=== PATIENT | female | born 1955 | race Caucasian/White ===

== ENCOUNTER → 2023-09-29 07:42 | Outpatient (REF) | payer MEDICARE, OTHER, SELFPAY ==
[2023-09-29 08:56] LABS: % Basophils 0.9 % (0-2); % Immature Granulocytes 2.1 % (0-0.5); % Lymphocytes 25.9 % (20.5-51.1); % Monocytes 7.2 % (1.7-9.3); % Neutrophils 57.9 % (42.2-75.2); Absolute Basophils 0.1 10^3/uL (0-0.2); Absolute Eosinophils 0.6 10^3/uL (0-0.7); Absolute Immature Granulocytes 0.2 10^3/uL (0-0.05); Absolute Lymphocytes 2.4 10^3/uL (1.2-3.4); Absolute Monocytes 0.7 10^3/uL (0.1-0.6); Absolute Neutrophils 5.3 10^3/uL (1.4-6.5); Hemoglobin 11.5 g/dL (12.0-16.0); Mean Corp Hgb Conc. 32.9 g/dL (33.0-37.0); Mean Corpuscular Hgb 28.4 pg (27.0-31.0); Mean Corpuscular Volume 86.4 fL (81.0-99.0); Mean Platelet Volume 9.7 fL (7.4-10.4); Nucleated Red Blood Cells % 0 %; Platelet Count 272 10^3/uL (130-400); Red Blood Cell Count 4.05 10^6/uL (4.20-5.40); Red Cell Dist. Width 14.8 % (11.5-14.5); White Blood Cell Count 9.1 10^3/uL (4.8-10.8)
[2023-09-29 09:03] LABS: ALT (SGPT) 27 U/L (0-35); AST (SGOT) 33 U/L (14-36); Alkaline Phosphatase 109 U/L (38-126); Blood Urea Nitrogen 19 mg/dl (7-17); Calcium 9.6 mg/dl (8.4-10.2); Carbon Dioxide 31 mmol/L (22-30); Chloride 101 mmol/L (98-107); Glucose 177 mg/dl (70-99); Iron 88 ug/dl (37-170); Potassium 4.1 mmol/L (3.5-5.1); Sodium 140 mmol/L (135-145); Total Bilirubin 0.7 mg/dl (0.2-1.3); Total Protein 6.4 g/dl (6.3-8.2); eGFR > 60.00
[2023-09-29 09:09] LABS: Erythrocyte Sed Rate 31 mm/hour (0-20)
[2023-09-29 09:12] LABS: Percent Saturation 24 % (20-50); Total Iron Binding Capacity 358 ug/dl (265-497)
== END ==
LOC: REG 07:42
PROVIDERS: ATTENDING PHYSICIAN Internal Medicine Rheumatology; FAMILY PHYSICIAN Family Medicine; REFERRING PHYSICIAN Internal Medicine Hematology & Oncology
DX: L40.50 Arthropathic psoriasis, unspecified (principal); L40.9 Psoriasis, unspecified; D69.6 Thrombocytopenia, unspecified
CPT/HCPCS: 36415; 80053; 82728; 83540; 83550; 85025; 85652; 86140

== ENCOUNTER 2023-10-16 19:24 | Emergency (ER) | payer MEDICARE, OTHER, SELFPAY ==
[2023-10-16 19:32] VITALS: BP 120/61
[2023-10-16 21:48] VITALS: BMI 34.1
[2023-10-16 21:49] VITALS: BP 116/87
--- NOTE | 2023-10-16 21:57 | ED.GENMED ---
History of Present Illness
General
Chief Complaint: DVT/Possible Blood Clot
Source: patient
Exam Limitations: none
Time Seen by Provider: 10/16/23 21:14
Travel History
Have you had any contact with someone who has COVID-19?: No
Do you have any symptoms of coronavirus? Fever > 100 degrees, chills, cough, shortness of breath, sore throat, loss of taste or smell, muscle aches, or headache?: No
History of Present Illness
History of Present Illness:
68-year-old female who presents with pain in the left proximal calf. Patient states she stood up and her knee sort of buckled and she developed pain in that area. She felt like it was swollen. Patient is on a blood thinner but was worried it
could have been a clot. She denies numbness or tingling. The pain is definitely worse with movement. No chest pain or shortness of breath
Past History
Past History
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
ED Past Surgical History: Cardiac (A-fib ablation), Gynecological and Orthopedic
Patient has exhibited threatening behavior?: No
Social History
Tobacco: Non-smoker
Alcohol: None
Drug: None
Personal:
Living: with family
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
Family History
Family History: Other (No significant)
Phy Exam
Physical Exam
Physical Exam:
CONSTITUTIONAL Vital signs reviewed, Patient alert and oriented to person, place and time. Well-appearing
HEAD atraumatic, normocephalic.
EYES eyelids normal to inspection, Extraocular muscles intact, Conjunctiva normal, Sclera normal.
NECK normal range of motion, Trachea midline, no jugular venous distention.
RESP no respiratory distress
BACK No obvious deformities
UPPER EXTREMITY Gross Range of motion normal, gross motor strength normal
LOWER EXTREMITY Gross range of motion normal, Gross motor strength normal. No knee effusion. Minor tenderness noted at the proximal gastrocnemius right at the distal portion of the popliteal fossa. Hamstrings are nontender. Normal distal pulses
and bilateral lower extremities. No redness. No palpable cords
NEURO Speech normal, No focal motor deficits include, Sabinal coma scale 15, Memory normal, Cranial Nerves intact to screening exam.
SKIN Skin warm, dry, and normal in color.
PSYCHIATRIC Patient oriented to person place and time, Normal affect.
Course
Orders/Labs/Results
Orders:
Orders
10/16/23 19:38
US Legs, Left [US Periph Venous LOWER Ext LT] Urgent
Comment:
Reason For Exam: pain
Vital Signs
Initial and Last Documented VS:
Initial Vital Signs
Temp Pulse Resp BP Pulse Ox
98.0 F 68 18 120/61 100
10/16/23 19:32 10/16/23 19:32 10/16/23 19:32 10/16/23 19:32 10/16/23 19:32
Last Documented Vital Signs
Temp Pulse Resp BP Pulse Ox
98.0 F 68 18 116/87 97
10/16/23 19:32 10/16/23 19:32 10/16/23 19:32 10/16/23 21:49 10/16/23 21:51
MDM/Problems Addressed
MDM/Problems Addressed:
Calf injury
*Radiology
Radiology exam reviewed: radiology read reviewed
*Pulse Oximetry
Patient hypoxic: no
*Critical Care Note
Total Time (30-74mins, 75-104mins- exclusive of procedures): Not Applicable
Data Reviewed
Source: patient
Further Testing Considered But Not Given:
Considered x-rays but no fall
Patient Management
Escalation/DeEscalation of care consider admission/obs:
Tenderness and pain in the calf after she stood up and buckled her leg a little bit oddly. I do not suspect the knee injury but more so muscle/gastrocnemius strain. Recommended rest, ice
ED Attending Note
-
Portions of this chart may have been created with voice recognition software.� Occasional wrong word or��sound alike� substitutions may have occurred due to the inherent limitations of voice recognition software.
Discharge Plan
Departure
Patient Disposition: Home (Routine Discharge)
Date of Disposition: 10/16/23
Time of Disposition: 21:57
Patient with high blood pressure during this ER visit?: Yes
Discharge Problem:
Strain of calf muscle
Instructions: Leg Muscle Strain ED
Prescriptions:
No Action
duloxetine 60 MG capsule,delayed release(DR/EC)
60 mg PO DAILY
atorvastatin 10 MG tablet
10 mg PO HS
Januvia 100 MG tablet
100 mg PO DAILY
potassium chloride 10 MEQ capsule, extended release
20 meq PO BID
cetirizine 10 MG tablet
10 mg PO DAILY
ferrous sulfate [iron] 325 MG tablet
325 mg PO DAILY
glimepiride 4 MG tablet
4 mg PO BID
hydrochlorothiazide 25 MG tablet
25 mg PO DAILY
cholecalciferol (vitamin D3) 1,000 UNITS tablet
2,000 units PO DAILY
folic acid 1 MG tablet
1 mg PO MOWEFR
nadolol [Corgard] 20 mg Tablet
20 mg PO BID
Patient Comments:
Confirmed- patient takes 2 tablets BID for total dose of 40 mg BID
Otezla 30 mg Tablet
30 mg PO BID
ascorbic acid (vitamin C) [Vitamin C] 500 mg Tablet
500 mg PO DAILY
cyanocobalamin (vitamin B-12) [Vitamin B-12] 1,000 mcg Tablet
1,000 mcg PO MOWEFR
Eliquis 5 mg Tablet
5 mg PO BID
Rx Instructions:
02/19/2023, patient stopped taking the medication in 2021 but restarted on 05/30/2022
famotidine [Pepcid] 40 mg Tablet
40 mg PO DAILY
Trulicity 3 mg/0.5 mL Pen Injector
3 mg SC STOKES
nadolol [Corgard] 40 mg tablet
40 mg PO BID Qty: 60 0RF
Referrals:
Chandler Handy MD [Family Provider] -
Activity Restrictions/Additional Instructions:
Please ice your injured leg. Please use Tylenol as needed for pain control. Return for worsening symptoms, shortness of breath or any other concerns.
Interventions
Interventions:
*Risk Screen - Suicide Last Done: 10/16/23 19:32
*General Assessment Last Done: 10/16/23 19:32
*Neglect/Abuse Screening Last Done: 10/16/23 19:32
*ED COVID-19 Vaccine History Last Done: 10/16/23 21:50
ED- Cardiac Assessment Last Done: 10/16/23 21:50
ED- Pulmonary Assessment Last Done: 10/16/23 21:50
ED-Peripheral Vascular Assessment Last Done: 10/16/23 21:50
ED-Skin Assessment Last Done: 10/16/23 21:50
[2023-10-16 22:00] VITALS: BP 116/74
== END 2023-10-16 22:42 | disposition home or self-care (01) ==
LOC: EMR 19:24
PROVIDERS: EMERGENCY PHYSICIAN Emergency Medicine; FAMILY PHYSICIAN Family Medicine
DX: S86.112A Strain of other muscle(s) and tendon(s) of posterior muscle group at lower leg level, left leg, initial encounter (principal); X50.1XXA Overexertion from prolonged static or awkward postures, initial encounter; I10 Essential (primary) hypertension
CPT/HCPCS: 99284; 93971

== ENCOUNTER → 2023-12-08 14:34 | Outpatient (REF) | payer MEDICARE, OTHER, SELFPAY ==
[2023-12-08 16:39] LABS: % Basophils 0.6 % (0-2); % Eosinophils 2.2 % (0-6); % Immature Granulocytes 1.5 % (0-0.5); % Lymphocytes 25.4 % (20.5-51.1); % Monocytes 8.1 % (1.7-9.3); % Neutrophils 62.2 % (42.2-75.2); Absolute Basophils 0.1 10^3/uL (0-0.2); Absolute Eosinophils 0.2 10^3/uL (0-0.7); Absolute Immature Granulocytes 0.2 10^3/uL (0-0.05); Absolute Lymphocytes 2.6 10^3/uL (1.2-3.4); Absolute Monocytes 0.8 10^3/uL (0.1-0.6); Absolute Neutrophils 6.4 10^3/uL (1.4-6.5); Hematocrit 35.1 % (37.0-47.0); Hemoglobin 11.4 g/dL (12.0-16.0); Mean Corp Hgb Conc. 32.5 g/dL (33.0-37.0); Mean Corpuscular Hgb 27.4 pg (27.0-31.0); Mean Corpuscular Volume 84.4 fL (81.0-99.0); Mean Platelet Volume 9.8 fL (7.4-10.4); Nucleated Red Blood Cells % 0 %; Platelet Count 297 10^3/uL (130-400); Red Blood Cell Count 4.16 10^6/uL (4.20-5.40); Red Cell Dist. Width 14.9 % (11.5-14.5); White Blood Cell Count 10.3 10^3/uL (4.8-10.8)
== END ==
LOC: REG 14:34
PROVIDERS: ATTENDING PHYSICIAN Nurse Practitioner Family; FAMILY PHYSICIAN Family Medicine
DX: D69.3 Immune thrombocytopenic purpura (principal); D50.9 Iron deficiency anemia, unspecified
CPT/HCPCS: 36415; 85025

== ENCOUNTER → 2024-02-06 06:21 | Day surgery (SDC) | payer MEDICARE, OTHER, SELFPAY ==
[2024-02-06 09:03] LABS: % Basophils 0.9 % (0-2); % Immature Granulocytes 1.6 % (0-0.5); % Lymphocytes 25.7 % (20.5-51.1); % Monocytes 8.8 % (1.7-9.3); Absolute Basophils 0.1 10^3/uL (0-0.2); Absolute Eosinophils 0.5 10^3/uL (0-0.7); Absolute Immature Granulocytes 0.1 10^3/uL (0-0.05); Absolute Lymphocytes 2.3 10^3/uL (1.2-3.4); Absolute Monocytes 0.8 10^3/uL (0.1-0.6); Absolute Neutrophils 5.1 10^3/uL (1.4-6.5); Hematocrit 35.7 % (37.0-47.0); Hemoglobin 11.9 g/dL (12.0-16.0); Mean Corp Hgb Conc. 33.3 g/dL (33.0-37.0); Mean Corpuscular Hgb 27.4 pg (27.0-31.0); Mean Corpuscular Volume 82.3 fL (81.0-99.0); Nucleated Red Blood Cells % 0 %; Platelet Count 294 10^3/uL (130-400); Red Blood Cell Count 4.34 10^6/uL (4.20-5.40); Red Cell Dist. Width 15.1 % (11.5-14.5); White Blood Cell Count 8.9 10^3/uL (4.8-10.8)
[2024-02-06 09:31] LABS: Blood Urea Nitrogen 19 mg/dl (7-17); Calcium 9.4 mg/dl (8.4-10.2); Carbon Dioxide 32 mmol/L (22-30); Chloride 101 mmol/L (98-107); Glucose 128 mg/dl (70-99); Potassium 4.2 mmol/L (3.5-5.1); Sodium 140 mmol/L (135-145); eGFR > 60.00
== END ==
LOC: SDSPAT 06:21
PROVIDERS: ATTENDING PHYSICIAN Obstetrics & Gynecology Gynecologic Oncology; FAMILY PHYSICIAN Family Medicine; OTHER PHYSICIAN Internal Medicine Cardiovascular Disease; OTHER PHYSICIAN Internal Medicine Rheumatology; REFERRING PHYSICIAN Surgery
DX: Z01.812 Encounter for preprocedural laboratory examination (principal); K38.8 Other specified diseases of appendix
CPT/HCPCS: 85025; 36415; 80048; 86850; 86900; 86901; 87070

== ENCOUNTER 2024-02-17 06:06 | Day surgery (SDC) | payer MEDICARE, OTHER, SELFPAY ==
[2024-02-06 06:49] VITALS: BMI 33.6
--- NOTE | 2024-02-16 18:45 | HPS.HSE ---
Family Physician
-
Family Physician: INTERVIEWE UNKNOWN - PT NOT
Chief Complaint
-
N/A
History of Present Illness
Paloma�Anthes�is a 68 yo woman who has history of microcytic�anemia�with�iron�deficiency� Has�been�on�chronic�oral�iron�resuscitation�but�has�persistent�iron�deficiency.�
Diabetic�control�required�insulin as�a�result�of�steroid�associated�insulin�resistance�during�her�hospitalization. She�had�previously�noted�to�have�a�appendiceal�enlargement�,�and�saw�Dr�Ramin�Denny at [facility].
CT�abdomen�and�pelvis�without�contrast�Leydi��shows�distended�appendix�filled�with�air,�low�density�material�and
calcification�consistent�with�Appendicolithitis�or�concreted�oral�contrast.�There�is�no�evidence�for�active�inflammation�and�no�more
distended�than�prior�comparison�study.�There�is�a�thickened�proximal�third�portion�of�jejunum�with�flat�fold�pattern�consider�chronic
jejunitis�or�celiac�disease,�small�left�ovarian�cyst�which�is�new�since�prior�study.�Liver�spleen�kidneys�adrenal�glands�pancreas�and
gallbladder�are�normal.�Uterus�and�right�ovary�are�normal,�left�ovarian�small�cyst�15�mm�new�since�prior�study�present.�Moderate�to
severe�left�hip�osteoarthritis�with�bone�on�bone�appearance�and�subchondral�cyst.�Right�hip�joint�is�normal.�Spine�is�normal
Due to�new�ovary�cyst�further�investigation�was�done�with�US�pelvis.
Ultrasound�of�pelvis�dated�October 2023 :irregular�endometrium�with�cysts�and�fluid�present,�endometrium�borderline�thickened�at
5�mm.�Consideration�of�endometrial�hyperplasia�versus�malignancy�present.�Uterus�is�6.2�x�3.5�x�4.8�cm,�endometrial�complex�is�5
mm,�right�ovary�is�2.2�x�1.3�x�1.5�cm�containing�a�follicle�which�is�1�cm.�Left�ovary�is�2�x�2.3�x�1.3�cm�with�left�ovary�cyst measuring�1.8�cm.�There�is�a�left�ovary�simple�cyst�present�measuring . I performed an endometrial biopsy which was
atrophic and no hyperplasia or cancer.
Medical History
Past Medical History
Past Medical History: Reports HTN and Hypercholesterolemia
Additional Past Medical History:
Atrial�fibrillation
Bleeding�tendency
Hypertension
Type�II�Diabetes
Blood�transfusions
Kidney�stones
Hyperlipidemia
Anemia
Psoriatic�
arthritis
Obesity�
Past Surgical History: Reports
Additional Past Surgical History:
Tubal ligation
[place] teeth
Ablation Rx2, Lx2
Cardioversion x3
Social History
Unable to obtain full social history at this time due to: Other (Patient is . Never Smoker Patient reports alcohol use as follows: Patient reports on average <1 drinks per week of alcohol/beer. 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
Tobacco: Non-smoker
Family History
Family History: Not pertinent
Allergies / Home Medications
Allergies reflects when Allergies were last updated in [employer].
Home Medications with original date entered in [employer]
Allergy/Medication List:
Indocin
Iodinated contrast media
Review of Systems
-
History Source: Patient
A 12 point ROS was completed and negative except as noted: Yes
Constitutional: Reports No Symptoms
EENT: Reports No Symptoms
Respiratory: Reports No Symptoms
Cardiac: Reports No Symptoms
Abdomen/GI: Reports No Symptoms
: Reports No Symptoms
Musculoskeletal: Reports No Symptoms
Skin: Reports No Symptoms
Neurological: Reports No Symptoms
Psych: Reports No Symptoms
Physical Exam
Physical Exam
General: Well Developed, Well Nourished and Other (Patient is well developed, well nourished. No acute distress. ECOG Performance: 0: Fully active, able to carry on all pre�disease performance without restriction Patient appears stated age.
Atraumatic and normocephalic. Sclera are clear. There is no redness/drainage in conjunctiva. Neck is suppl)
HEENT: NormoCephalic
Respiratory: Clear
Cardiac: S1/S2 and Regular Rhythm
GI: Soft, Non Tender and Non Distended
Musculoskeletal: No Clubbing and No Cyanosis
Skin: Warm
Neuro: Awake, Alert, Oriented and AO x 3
Psych: Calm and Intact Judgment/Insight
Laboratory Results
-
I reviewed the images of her CT A/P, and also pelvic US. with the patient, and explained my exam findings.
cyst of ovary is very small and overall benign appearing. it is new, which is unusual in this age group.
Tumor markers including CA125 and CEA and CA19-9 are normal.
Uterine lining was slightly Thick on US. endometrial biopsy done, may be due to residual polyp. suspect she had cervical stenosis and had trapped mucous. suspicious for malignancy is very low.
she wants to have uterus and ovary removed if she is having surgery on appendix at same time.
We plan to proceed with Robotic TLH BSO and Dr Sherman is to joinus and do appendectomy at same time.
Risks discussed and reviewed, consent will be signed.
Data Reviewed
-
Diagnostic Radiology: Image Personally Visualized and interpreted
CT Scan: Image Personally Visualized and interpreted
Impression/Plan
-
IMPRESSION:
PLAN:
[2024-02-17] VITALS (18 sets, daily range): BP systolic 121–150; BP diastolic 59–88; BMI 33.6
[2024-02-17] MEDS: TYLENOL 1000 MG PO (06:25)
[2024-02-17] MEDS: CELEBREX PO (06:26)
[2024-02-17] MEDS: NEURONTIN 300 MG PO (06:26)
[2024-02-17] MEDS: HEPARIN 5000 UNITS SC (06:27)
[2024-02-17] MEDS: CELEBREX 200 MG PO (06:38)
[2024-02-17] MEDS: NORMOSOL-R 1000 IV (06:39)
[2024-02-17 06:40] LABS: Glucose - Point of Care 169 mg/dl (70-99)
--- NOTE | 2024-02-17 07:04 | HP.FOC2 ---
Focused History & Physical
Chief Complaint
HPI:
Chief Complaint: Abnormal imaging of the appendix
HPI / Indication for Planned Procedure: Patient is a 68-year-old female presenting today for robotic assisted lap BSO with CT imaging demonstrating a mildly dilated appendix measuring 11 mm with low density material and calcifications suggestive of
an appendicolith or old oral contrast. Colonoscopy unremarkable.
Relevant Past Medical History: Other (Anemia, GERD, gastritis, MELLISSA/CPAP, depression, DM type II, hyperlipidemia, hypertension, ITP, P A-fib)
Relevant Social History: Negative
Relevant Family History: Negative
Relevant Past Surgical History: Positive for (Cardioversion, tubal ligation, cardiac ablations, loosened teeth extraction)
Review of Systems
Review of Pertinent Systems: All Systems Negative
Medication
See Medication form for detailed medications: Yes
Medication List (including Herbals & OTC):
duloxetine 60 mg capsule,delayed release 60 mg PO DAILY Mental Health/Anxiety 03/26/13
atorvastatin 10 mg tablet 10 mg PO HS High cholesterol 03/31/13
sitagliptin phosphate 100 mg tablet (Januvia) 100 mg PO DAILY Diabetes 12/01/13
cetirizine 10 mg tablet 10 mg PO DAILY 06/17/20
cholecalciferol (vitamin D3) 25 mcg (1,000 unit) tablet 2,000 units PO DAILY Supplement 06/17/20
ferrous sulfate 325 mg (65 mg iron) tablet (iron) 65 mg PO DAILY Supplement 06/17/20
glimepiride 4 mg tablet 4 mg PO BID Diabetes 06/17/20
hydrochlorothiazide 25 mg tablet 25 mg PO DAILY Blood pressure 06/17/20
potassium chloride 10 mEq capsule,extended release 20 meq PO BID Supplement 06/17/20
apremilast 30 mg tablet (Otezla) 30 mg PO BID Psoriatic arthitis 02/02/22
ascorbic acid (vitamin C) 500 mg tablet (Vitamin C) 500 mg PO DAILY Supplement 03/06/22
cyanocobalamin (vitamin B-12) 1,000 mcg tablet (Vitamin B-12) 1,000 mcg PO DAILY 03/25/22
apixaban 5 mg tablet (Eliquis) 5 mg PO BID 02/17/23
dulaglutide 3 mg/0.5 mL subcutaneous pen injector (Trulicity) 3 mg SC STOKES 02/19/23
famotidine 40 mg tablet (Pepcid) 40 mg PO DAILY 02/19/23
nadolol 40 mg tablet (Corgard) 40 mg PO BID #60 tabs 02/19/23
magnesium 250 mg tablet 250 mg PO BID 02/09/24
Medications Reviewed: Yes
Allergies and Reactions
Patient has Allergies: Yes
Noted Allergies and Reactions:
Allergy/AdvReac Type Severity Reaction Status Date / Time
indomethacin Allergy bradycardia Verified 02/17/24 06:06
Iodinated Contrast Media Allergy Hives Verified 02/17/24 06:06
[Iodinated Contrast Media -
IV Dye]
Pertinent Physical Exam
All Other Systems: Negative
Head/Neck: Normal
Lungs: Normal
Heart: Normal
Abdomen: Normal
Extremities: Normal
Neurological: Normal
Diagnosis / Assessment
68-year-old female with abnormal imaging of the appendix
Plan / Procedure
Robotic assisted/laparoscopic appendectomy
Anesthesia/Sedation to be done by Anesthesia Provider: Yes
--- NOTE | 2024-02-17 07:08 | W.SUR.PREOP ---
Pre-Operative Surgical Note
-
I have examined this patient prior to the performance of the scheduled procedure.
The patient's condition is unchanged from the time of the current History and
Physical and the patient is able to undergo the scheduled procedure - laparoscopic/RAL appendectomy
--- NOTE | 2024-02-17 08:36 | W.IMMPOSTOP ---
Addendum entered and electronically signed by Graeme Herman MD 02/17/24 08:44:
#[id number]
Original Note:
Surgical Immed Post Op Note
-
Primary Surgeon: Virgil
Assisting Surgeon: Mireille LOZANO
Pre-op Diagnosis: Abnormal imaging of the appendix, possible mucocele
Post-op Diagnosis: Abnormal imaging of the appendix, possible mucocele
Procedure Performed: Laparoscopic appendectomy
Anesthesia Type: GETA
Specimen / Cultures: Appendix/none
Estimated Blood Loss: 6 mL for this portion of the procedure
Complications: None
Operative Findings: Modestly dilated appendix without acute or chronic inflammatory changes. Mesoappendix mobilized and then divided to the base of the appendix with vessel sealer for hemostasis. Appendix divided with short cuff of cecum
preserving ileocecal valve. No disruption of appendix with appendectomy. No additional concerning incidental findings.
Please see Dr. Love's operative report for remaining details regarding operative procedure.
Patient's updated postoperatively in waiting area
--- NOTE | 2024-02-17 09:35 | OR.RPT ---
Operative Report
Operative Report
Date of surgery: February 17, 2024
Preoperative diagnosis: Thickened endometrial lining suspicious for malignancy, ovarian cyst, uterine prolapse
Postoperative diagnosis: Benign appearing ovarian cyst, remainder pending final pathology
Procedure:
Robotic assisted total laparoscopic hysterectomy, bilateral salpingo-oophorectomy [id number]
Injection of cervix with ICG dye, bilateral, for mapping and identification of pelvic sentinel lymph nodes [id number]
Robotic assisted laparoscopic excision of pelvic sentinel lymph node [id number]
Robotic assisted laparoscopic uterosacral colpopexy [id number]
additional procedure: Robotic assisted laparoscopic appendectomy (by Dr Graeme Herman)
Surgeon: Gianni Love MD
Assist: Pal Ball PA-C, MARTA Edwards
Anesthesia: General
EBL: 50 cc
Complications: None
Procedure in detail. This patient was taken to the operating room for definitive management of recently identified abnormal thickening of the lining of the uterus, ovarian cyst as well as dilated abnormal appearing appendix. Surgery was
coordinated with general surgery and in order to remove the appendix at the same time. She was placed in supine position general anesthesia was administered she was intubated without any difficulty she was placed on lithotomy position using
yellowfin stirrups arms were wrapped and foams and placed along the sides eyes were taped and OG tube was placed. The patient was prepped on the abdomen perineum and vagina on upper thighs and she was draped. Timeout procedure was carried out, she
received combination of Ancef and Flagyl for prophylaxis and had received heparin for prophylaxis previously.
Concepcion catheter was placed under sterile conditions into the bladder. Anterior lip of the cervix was grasped with single-tooth tenaculum. Cervix was dilated, uterine cavity was approximately 8 cm. Uterine manipulator chief fundraising officer type. 3.5 cm BANDAR
ring was placed in the uterine cavity for manipulation. Attention was turned abdominally, Veress needle was placed under the left costal margin and insufflation of the abdomen with CO2 gas was performed up to pressure of 15 mmHg. 8 mm robotic
ports were placed 25 cm cephalad to the symphysis pubis and under direct visualization using the camera additional 8 mm robotic ports were placed right and left upper quadrants of the abdomen and right and left lateral abdomen. We turned the case
over to the general surgery team, the patient was placed in Trendelenburg, please see Dr. Herman's note for robotic assisted appendectomy.
Next pelvic washings were collected, uterine manipulator was removed and the cervix was injected with ICG dye total of 4 cc split at 3 and 9:00 positions at 5 mm and 10 mm stations. Following this the manipulator was placed back into uterus and
vaginal cuff occluder was insufflated. Right and left round ligaments were sealed and divided anterior and posterior leaves of the broad ligament were dissected open. Both retroperitoneal spaces on the right and left sides were opened, the course
of the ureter was identified bilaterally, a window was created between ureter and IP ligament and the IP ligaments were sealed 3 times and divided. Tubes and ovaries were left attached to the uterus. On the left side I was unable to map the
lymphatic channel into a particular lymph node. On the right side 2 lymph nodes along the mid external iliac artery were removed as sentinel lymph nodes. Bladder flap was sharply developed and advanced below the cervical vaginal junction. Uterine
arteries were skeletonized and were sealed with vessel sealer and divided. Circumferential incision was made around the BANDAR ring until the uterus was completely detached. The uterus and cervix as well as a bag containing the appendix was removed
through the vagina. The vaginal cuff was closed with 0 Vicryl suture ligature in a [id number] fashion at both apices incorporating uterosacral ligaments. V-Loc suture was used to close the remainder of the cuff in 2 layers. Because of the
presence of uterine prolapse and excessive mobility of the vaginal apex uterosacral suspension was performed with 2-0 PDS suture approximating uterosacral ligaments in a [id number] fashion and this was tied securely. All pedicles were examined
and there was no evidence of bleeding. We closed the fascia at the level of the 12 mm right lower quadrant port with 0 Vicryl suture. Using a Sendori system. Pneumoperitoneum was released. All ports were removed. The skin closure at the
ports were completed with 4-0 Monocryl. Skin glue was applied to all incisions. All incisions were injected with bupivacaine, ropivacaine was injected similar to a tap block on right and left side below the costal margins. Patient was awakened
extubated and returned back to recovery room stable awake and extubated condition. Counts of laps instruments and needle was correct x 2. I was present and scrubbed for entire procedure as dictated above. Also the vaginal cuff occluder as well as
Concepcion catheter was removed at the completion of the procedure
Disposition: To PACU, stable awake extubated
[2024-02-17 09:39] LABS: Glucose - Point of Care 238 mg/dl (70-99)
[2024-02-17] MEDS: NOVOLOG vial 1 UNITS SC (10:11)
--- NOTE | 2024-02-17 10:28 | PTCARENOTE ---
0950 Patient noted to have bursts of bigeminy/SB, VSS, asymptomatic. Dr Velasquez made aware, eval in PACU no new orders at this time, will cont to monitor for improvement .
--- NOTE | 2024-02-17 10:31 | PTCARENOTE ---
1020 Episodes/frequency of bigeminy are diminishing. Patient remains asymptomatic with stable VS. No C/O.
--- NOTE | 2024-02-17 12:24 | PTCARENOTE ---
1130 Patient continues to have runs of bigeminy and remains asymptomatic. VSS no C/O. Per Dr Eva neal to transfer to [facility] and proceed with discharge as ordered.
== END 2024-02-17 14:25 | disposition home or self-care (01) ==
LOC: SDS 06:06
PROVIDERS: ATTENDING PHYSICIAN Obstetrics & Gynecology Gynecologic Oncology
DX: D12.1 Benign neoplasm of appendix (principal); N72 Inflammatory disease of cervix uteri; N80.03 Adenomyosis of the uterus; D25.9 Leiomyoma of uterus, unspecified; N83.8 Other noninflammatory disorders of ovary, fallopian tube and broad ligament; D27.1 Benign neoplasm of left ovary; D27.0 Benign neoplasm of right ovary; R93.89 Abnormal findings on diagnostic imaging of other specified body structures
CPT/HCPCS: 57425; 58571; 38500; 38900; 44970; 88304; 88307; 88309; 82962; 88112; 88342

== ENCOUNTER 2024-03-15 05:20 | Emergency (ER) | payer MEDICARE, OTHER, SELFPAY ==
[2024-03-15] VITALS (7 sets, daily range): BP systolic 129–165; BP diastolic 61–93; BMI 34.7
[2024-03-15 06:00] LABS: % Basophils 0.3 % (0-2); % Immature Granulocytes 1.3 % (0-0.5); % Lymphocytes 29.1 % (20.5-51.1); % Monocytes 8.5 % (1.7-9.3); % Neutrophils 56.8 % (42.2-75.2); Absolute Eosinophils 0.4 10^3/uL (0-0.7); Absolute Immature Granulocytes 0.1 10^3/uL (0-0.05); Absolute Lymphocytes 2.7 10^3/uL (1.2-3.4); Absolute Monocytes 0.8 10^3/uL (0.1-0.6); Absolute Neutrophils 5.2 10^3/uL (1.4-6.5); Hematocrit 36.8 % (37.0-47.0); Hemoglobin 11.9 g/dL (12.0-16.0); Mean Corp Hgb Conc. 32.3 g/dL (33.0-37.0); Mean Corpuscular Hgb 27.2 pg (27.0-31.0); Mean Platelet Volume 9.3 fL (7.4-10.4); Nucleated Red Blood Cells % 0 %; Platelet Count 260 10^3/uL (130-400); Red Blood Cell Count 4.38 10^6/uL (4.20-5.40); Red Cell Dist. Width 15.9 % (11.5-14.5); White Blood Cell Count 9.2 10^3/uL (4.8-10.8)
--- NOTE | 2024-03-15 06:17 | EDRN ---
Pt had a hysterectomy and appendectomy 3 weeks ago. Pt started with vaginal bleeding around [id number] this morning. Blood was bright red with small clots. Pt says she was having a pink tinge up until this morrning. Pt says she is still bleeding.
No cp, sob, abd pain, n/v/c/d, fever/chills/cough, urinary symptoms.
[2024-03-15 06:20] LABS: ALT (SGPT) 26 U/L (0-35); AST (SGOT) 31 U/L (14-36); Albumin 4.1 g/dl (3.5-5.0); Alkaline Phosphatase 106 U/L (38-126); Blood Urea Nitrogen 18 mg/dl (7-17); Carbon Dioxide 30 mmol/L (22-30); Chloride 101 mmol/L (98-107); Estimated Creatinine Clearance 60 ml/min; Glucose 139 mg/dl (70-99); Lipase 1875 U/L (23-300); Sodium 140 mmol/L (135-145); Total Bilirubin 0.5 mg/dl (0.2-1.3); Total Protein 6.5 g/dl (6.3-8.2); eGFR > 60.00
--- NOTE | 2024-03-15 06:46 | ED.GENMED ---
History of Present Illness
<Milton Brice MD, Resident - Last Filed: 03/15/24 10:56>
General
Chief Complaint: Female Mate Fourth/Gu symptoms
Source: patient
Time Seen by Provider: 03/15/24 06:09
History of Present Illness
History of Present Illness:
68-year-old postmenopausal female, Ms. Paloma Saha robotic assisted laparoscopic hysterectomy place BSO/appendectomy (02/17/2024), A-fib on Eliquis, presented to the ER reporting painless vaginal bleeding since 1 AM in the morning. Patient
reports bleeding louisa bright red blood associated with small clots. Patient reports no postoperative complications. No history of fever/chills, abdominal pain, lightheadedness/dizziness, bladder/bowel issues. No history of any strenuous
activity, she returned to work 2 weeks after the surgery without any issues.
Past History
<Milton Brice MD, Resident - Last Filed: 03/15/24 10:56>
Past History
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
ED Past Surgical History: Cardiac (A-fib ablation), Gynecological and Orthopedic
Patient has exhibited threatening behavior?: No
Social History
Tobacco: Non-smoker
Alcohol: None
Drug: None
Personal:
Living: with family
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
Family History
Family History: Other (No significant)
Review of Systems
<Milton Brice MD, Resident - Last Filed: 03/15/24 10:56>
Review of Systems
All Other Systems: ROS reviewed and negative except as documented in HPI and ROS
Phy Exam
<Milton Brice MD, Resident - Last Filed: 03/15/24 10:56>
Physical Exam
Physical Exam:
GEN: Well appearing, NAD, WDWN
Eyes: PERRLA, EOMs intact, no scleral icterus
HENT: NCAT, oral mucosa moist, no JVD, no cervical adenopathy.
Lungs: CTAB, no wheezes, rales, rhonchi, normal chest wall excursion
Cardiac: RRR, S1-S2+, no peripheral edema. Radial pulses 2+ bilat
Abdomen: S, NT, ND, NABS, no masses or hepatosplenomegaly
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 So did not do the whole pelvic/bimanual/speculum exam. On inspection-bleeding per vagina.
Skin: No rashes, petechiae. Normal color, no pallor or jaundice.
Psych: Calm, cooperative, proper hygiene
Course
<Veneela Bob Brice MD, Resident - Last Filed: 03/15/24 10:56>
Orders/Labs/Results
Orders:
Orders
03/15/24 05:46
Type+Screen Urgent
Complete Blood Count/With Diff Urgent
Comprehensive Metabolic Panel Urgent
Lipase Urgent
03/15/24 07:09
CT Angio Abd/Pelvis w/wo IV [CT Abd/pelvis Angio W/wo Iv] Urgent
Comment:
Reason For Exam: vaginal bleeding s/p hysterectomy
03/15/24 07:31
Urinalysis Reflex To Culture Urgent
Date Specimen was Collected: 03/15/24
Time Specimen was Collected: 07:11
Urine Microscopic Reflex Cult Urgent
03/15/24 07:46
Diphenhydramine [Benadryl] 50 mg IV NOW STA
Hydrocortisone Sod Succinate [Solu-Cortef] 200 mg IV NOW STA
03/15/24 08:10
PT/INR [Prothrombin Time] Urgent
Abnormal Lab Results
03/15/24 03/15/24 03/15/24
05:46 07:31 08:10
Hgb 11.9 L g/dL
(12.0-16.0)
Hct 36.8 L %
(37.0-47.0)
MCHC 32.3 L g/dL
(33.0-37.0)
RDW 15.9 H %
(11.5-14.5)
Abs Immat Gran (auto) 0.1 H 10^3/uL
(0-0.05)
Absolute Monos (auto) 0.8 H 10^3/uL
(0.1-0.6)
Immature Gran % 1.3 H %
(0-0.5)
PT 15.2 H Sec
(11.4-14.6)
BUN 18 H mg/dl
(7-17)
Glucose 139 H mg/dl
(70-99)
Lipase 1875 H* U/L
(23-300)
Ur Occult Blood Reflex 4+ A
(Negative)
Leukocyte Esterase Rfl Trace A
(Negative)
Urine RBC 50-60 A /HPF
(0-2)
Urine Bacteria (Reflex) Few A
(Negative)
03/15/24 05:46
03/15/24 05:46
Vital Signs
Initial and Last Documented VS:
Initial Vital Signs
Temp Pulse Resp BP Pulse Ox
98.5 F 64 22 146/82 100
03/15/24 05:22 03/15/24 05:22 03/15/24 05:22 03/15/24 05:22 03/15/24 05:22
Last Documented Vital Signs
Temp Pulse Resp BP Pulse Ox
98.5 F 68 28 147/77 98
03/15/24 05:22 03/15/24 08:30 03/15/24 08:30 03/15/24 08:01 03/15/24 08:30
<Srinivasa Swan, DO - Last Filed: 03/15/24 07:12>
Orders/Labs/Results
Orders:
Orders
03/15/24 05:46
Type+Screen Urgent
Complete Blood Count/With Diff Urgent
Comprehensive Metabolic Panel Urgent
Lipase Urgent
03/15/24 07:09
CT Angio Abd/Pelvis w/wo IV [CT Abd/pelvis Angio W/wo Iv] Urgent
Comment:
Reason For Exam: vaginal bleeding s/p hysterectomy
03/15/24 07:31
Urinalysis Reflex To Culture Urgent
Date Specimen was Collected: 03/15/24
Time Specimen was Collected: 07:11
Urine Microscopic Reflex Cult Urgent
03/15/24 07:46
Diphenhydramine [Benadryl] 50 mg IV NOW STA
Hydrocortisone Sod Succinate [Solu-Cortef] 200 mg IV NOW STA
03/15/24 08:10
PT/INR [Prothrombin Time] Urgent
Abnormal Lab Results
03/15/24 03/15/24 03/15/24
05:46 07:31 08:10
Hgb 11.9 L g/dL
(12.0-16.0)
Hct 36.8 L %
(37.0-47.0)
MCHC 32.3 L g/dL
(33.0-37.0)
RDW 15.9 H %
(11.5-14.5)
Abs Immat Gran (auto) 0.1 H 10^3/uL
(0-0.05)
Absolute Monos (auto) 0.8 H 10^3/uL
(0.1-0.6)
Immature Gran % 1.3 H %
(0-0.5)
PT 15.2 H Sec
(11.4-14.6)
BUN 18 H mg/dl
(7-17)
Glucose 139 H mg/dl
(70-99)
Lipase 1875 H* U/L
(23-300)
Ur Occult Blood Reflex 4+ A
(Negative)
Leukocyte Esterase Rfl Trace A
(Negative)
Urine RBC 50-60 A /HPF
(0-2)
Urine Bacteria (Reflex) Few A
(Negative)
03/15/24 05:46
03/15/24 05:46
Vital Signs
Initial and Last Documented VS:
Initial Vital Signs
Temp Pulse Resp BP Pulse Ox
98.5 F 64 22 146/82 100
03/15/24 05:22 03/15/24 05:22 03/15/24 05:22 03/15/24 05:22 03/15/24 05:22
Last Documented Vital Signs
Temp Pulse Resp BP Pulse Ox
98.5 F 68 28 147/77 98
03/15/24 05:22 03/15/24 08:30 03/15/24 08:30 03/15/24 08:01 03/15/24 08:30
<Milton Brice MD, Resident - Last Filed: 03/15/24 10:56>
MDM/Problems Addressed
Differential Diagnosis Includes:
Vaginal cuff dehiscence versus vault endometriosis versus atrophic vaginitis
MDM/Problems Addressed:
Patient is anemic at baseline, 11.9.
Incidental finding of elevated lipase�1875.
LFTs normal, patient is asymptomatic, no RUQ pain.
CT scan abdomen pelvis with contrast�no pelvic hematomas/areas of active contrast extravasation.
Consulted Dr. Love, advised the patient to be seen in his office for vaginal packing.
Consulted GI for elevated lipase�would like to repeat lipase in a week and follow-up with primary care physician.
Patient is hemodynamically stable.
Patient is advised to go to Dr. Love's office once discharged for further management of vaginal bleeding.
<Milton Brice MD, Resident - Last Filed: 03/15/24 10:56>
*Critical Care Note
Total Time (30-74mins, 75-104mins- exclusive of procedures): Not Applicable
ED Attending Note
<Milton Brice MD, Resident - Last Filed: 03/15/24 10:56>
-
Portions of this chart may have been created with voice recognition software.� Occasional wrong word or��sound alike� substitutions may have occurred due to the inherent limitations of voice recognition software.
<Srinivasa Swan, DO - Last Filed: 03/15/24 07:12>
ED Attending Note
Patient seen and examined by attending physician: Yes
I performed a history and physical exam of patient and discussed management with resident, I reviewed resident's note and agree with documented findings and plan of care.: Yes
ED Attending Note:
I have reviewed and agree with history and treatment plan by Dr. Milton Brice. My exam revealed 68-year-old female in no acute distress. Vaginal bleeding on pad. Abdomen exam benign. Discussed with Dr. Love, who recommends CT angiography
abdomen pelvis.
Discharge Plan
Departure
Patient Disposition: Home (Routine Discharge)
Date of Disposition: 03/15/24
Time of Disposition: 10:52
Patient with high blood pressure during this ER visit?: Yes
Condition: Good
Discharge Problem:
Vaginal bleeding, Abnormal serum lipase level
Prescriptions:
No Action
duloxetine 60 MG capsule,delayed release(DR/EC)
60 mg PO DAILY
atorvastatin 10 MG tablet
10 mg PO HS
Januvia 100 MG tablet
100 mg PO DAILY
cetirizine 10 MG tablet
10 mg PO DAILY
ferrous sulfate [iron] 325 MG tablet
325 mg PO DAILY
glimepiride 4 MG tablet
4 mg PO BID
hydrochlorothiazide 25 MG tablet
25 mg PO DAILY
Otezla 30 mg Tablet
30 mg PO BID
ascorbic acid (vitamin C) [Vitamin C] 500 mg Tablet
500 mg PO DAILY
cyanocobalamin (vitamin B-12) [Vitamin B-12] 1,000 mcg Tablet
1,000 mcg PO DAILY
Eliquis 5 mg Tablet
5 mg PO BID
famotidine [Pepcid] 40 mg Tablet
40 mg PO DAILY
Trulicity 3 mg/0.5 mL Pen Injector
3 mg SC STOKES
nadolol [Corgard] 40 mg tablet
40 mg PO BID Qty: 60 0RF
magnesium 250 mg Tablet
250 mg PO BID
cholecalciferol (vitamin D3) [Vitamin D3] 50 mcg (2,000 unit) Tablet
50 mcg PO DAILY
potassium chloride 10 mEq capsule, extended release
20 meq PO BID
Theragen Tablet
1 tab PO DAILY
Referrals:
Chandler Handy MD [Family Provider] -
Activity Restrictions/Additional Instructions:
Patient advised to go to Dr. Love's office immediately after the discharge.
Follow-up with your primary care within a week for rechecking her lipase.
Interventions
Interventions:
*Risk Screen - Suicide Last Done: 03/15/24 05:22
*General Assessment Last Done: 03/15/24 05:49
*Neglect/Abuse Screening Last Done: 03/15/24 05:22
ED- Fall Risk Assessment Last Done: 03/15/24 06:16
*ED COVID-19 Vaccine History Last Done: 03/15/24 05:49
ED-Female Genitourinary Assessment Last Done: 03/15/24 05:52
ED-Skin Assessment Last Done: 03/15/24 06:16
Discharge Date and Time
Print Language: POLISH
[2024-03-15 07:44] LABS: Urine Albumin Negative (Neg - Trace); Urine Bilirubin Negative (Negative); Urine Character Clear (Clear); Urine Color Yellow; Urine Glucose Negative (Negative); Urine Ketone Negative (Negative); Urine Leukocyte Trace (Negative); Urine Nitrite Negative (Negative); Urine Occult Blood 4+ (Negative); Urine Specific Gravity 1.015 (<1.030); Urine Urobilinogen Negative (Neg - 1+)
[2024-03-15 08:02] LABS: Urine Bacteria Few (Negative); Urine Red Blood Cell 50-60 /HPF (0-2); Urine White Cell 0-2 /HPF (0-5)
[2024-03-15] MEDS: BENADRYL 50 MG IV (08:02)
[2024-03-15] MEDS: SOLU-CORTEF 200 MG IV (08:03)
[2024-03-15 08:27] LABS: INR 1.22; PT 15.2 Sec (11.4-14.6)
[2024-03-15 13:54] LABS: APTT 31.1 Sec (23.4-35.0)
== END 2024-03-15 11:18 | disposition home or self-care (01) ==
LOC: EMR 05:20
PROVIDERS: Student in an Organized Health Care Education/Training Program; EMERGENCY PHYSICIAN Emergency Medicine; FAMILY PHYSICIAN Family Medicine
DX: N93.9 Abnormal uterine and vaginal bleeding, unspecified (principal); R79.89 Other specified abnormal findings of blood chemistry; I48.91 Unspecified atrial fibrillation; K21.9 Gastro-esophageal reflux disease without esophagitis; I10 Essential (primary) hypertension; E78.00 Pure hypercholesterolemia, unspecified; E11.9 Type 2 diabetes mellitus without complications; D64.9 Anemia, unspecified; Z79.01 Long term (current) use of anticoagulants; Z90.49 Acquired absence of other specified parts of digestive tract; Z90.710 Acquired absence of both cervix and uterus
CPT/HCPCS: 99284; 96374; 96375; 74174; 80053; 81003; 81015; 83690; 85025; 85610; 85730; 86850; 86900; 86901; Q9967

== ENCOUNTER → 2024-03-30 07:28 | Outpatient (REF) | payer MEDICARE, OTHER, SELFPAY ==
[2024-03-30 09:05] LABS: % Basophils 0.5 % (0-2); % Eosinophils 3.1 % (0-6); % Immature Granulocytes 1.6 % (0-0.5); % Lymphocytes 23.2 % (20.5-51.1); % Monocytes 7.1 % (1.7-9.3); % Neutrophils 64.5 % (42.2-75.2); Absolute Basophils 0.1 10^3/uL (0-0.2); Absolute Eosinophils 0.3 10^3/uL (0-0.7); Absolute Immature Granulocytes 0.2 10^3/uL (0-0.05); Absolute Lymphocytes 2.2 10^3/uL (1.2-3.4); Absolute Monocytes 0.7 10^3/uL (0.1-0.6); Absolute Neutrophils 6.1 10^3/uL (1.4-6.5); Hematocrit 37.8 % (37.0-47.0); Hemoglobin 12.5 g/dL (12.0-16.0); Mean Corp Hgb Conc. 33.1 g/dL (33.0-37.0); Mean Corpuscular Hgb 27.6 pg (27.0-31.0); Mean Corpuscular Volume 83.4 fL (81.0-99.0); Mean Platelet Volume 9.8 fL (7.4-10.4); Nucleated Red Blood Cells % 0 %; Platelet Count 298 10^3/uL (130-400); Red Blood Cell Count 4.53 10^6/uL (4.20-5.40); Red Cell Dist. Width 15.5 % (11.5-14.5); White Blood Cell Count 9.5 10^3/uL (4.8-10.8)
[2024-03-30 09:09] LABS: Erythrocyte Sed Rate 23 mm/hour (0-20)
[2024-03-30 09:16] LABS: ALT (SGPT) 24 U/L (0-35); AST (SGOT) 27 U/L (14-36); Albumin 4.2 g/dl (3.5-5.0); Alkaline Phosphatase 137 U/L (38-126); Blood Urea Nitrogen 16 mg/dl (7-17); Calcium 10.2 mg/dl (8.4-10.2); Carbon Dioxide 30 mmol/L (22-30); Chloride 102 mmol/L (98-107); Glucose 149 mg/dl (70-99); Iron 62 ug/dl (37-170); Potassium 4.7 mmol/L (3.5-5.1); Sodium 142 mmol/L (135-145); Total Bilirubin 0.7 mg/dl (0.2-1.3); Total Protein 6.7 g/dl (6.3-8.2); eGFR > 60.00
[2024-03-30 09:26] LABS: Percent Saturation 15 % (20-50); Total Iron Binding Capacity 388 ug/dl (265-497)
[2024-03-30 09:51] LABS: Ferritin 45.7 ng/ml (11.1-264.0)
[2024-03-30 10:22] LABS: Folate > 20.0 ng/ml (2.76-20); Vitamin B12 > 1000 pg/ml (239-931)
== END ==
LOC: REG 07:28
PROVIDERS: ATTENDING PHYSICIAN Internal Medicine Hematology & Oncology; FAMILY PHYSICIAN Family Medicine
DX: D69.3 Immune thrombocytopenic purpura (principal); D50.9 Iron deficiency anemia, unspecified; D69.6 Thrombocytopenia, unspecified
CPT/HCPCS: 36415; 80053; 82607; 82728; 82746; 83540; 83550; 85025; 85652; 86140

== ENCOUNTER → 2024-04-15 16:01 | Outpatient (REF) | payer MEDICARE, OTHER, SELFPAY ==
[2024-04-15 17:40] LABS: % Basophils 0.4 % (0-2); % Eosinophils 4.1 % (0-6); % Immature Granulocytes 1.6 % (0-0.5); % Lymphocytes 22.3 % (20.5-51.1); % Monocytes 7.8 % (1.7-9.3); % Neutrophils 63.8 % (42.2-75.2); Absolute Basophils 0.1 10^3/uL (0-0.2); Absolute Eosinophils 0.5 10^3/uL (0-0.7); Absolute Immature Granulocytes 0.2 10^3/uL (0-0.05); Absolute Lymphocytes 2.7 10^3/uL (1.2-3.4); Absolute Neutrophils 7.8 10^3/uL (1.4-6.5); Hematocrit 34.8 % (37.0-47.0); Hemoglobin 11.3 g/dL (12.0-16.0); Mean Corp Hgb Conc. 32.5 g/dL (33.0-37.0); Mean Corpuscular Hgb 26.3 pg (27.0-31.0); Mean Corpuscular Volume 80.9 fL (81.0-99.0); Mean Platelet Volume 9.7 fL (7.4-10.4); Nucleated Red Blood Cells % 0 %; Platelet Count 323 10^3/uL (130-400); Red Cell Dist. Width 15.6 % (11.5-14.5); White Blood Cell Count 12.2 10^3/uL (4.8-10.8)
== END ==
LOC: REG 16:01
PROVIDERS: ATTENDING PHYSICIAN Internal Medicine Hematology & Oncology; FAMILY PHYSICIAN Family Medicine
DX: D69.3 Immune thrombocytopenic purpura (principal); D50.9 Iron deficiency anemia, unspecified; K38.8 Other specified diseases of appendix; R19.04 Left lower quadrant abdominal swelling, mass and lump; R93.5 Abnormal findings on diagnostic imaging of other abdominal regions, including retroperitoneum; Z12.4 Encounter for screening for malignant neoplasm of cervix; C18.9 Malignant neoplasm of colon, unspecified; C25.9 Malignant neoplasm of pancreas, unspecified; C56.9 Malignant neoplasm of unspecified ovary
CPT/HCPCS: 36415; 85025

== ENCOUNTER → 2024-05-08 09:38 | Outpatient (REF) | payer MEDICARE, OTHER, SELFPAY ==
[2024-05-08 12:10] LABS: Amylase 75 U/L (30-110); Lipase 180 U/L (23-300)
== END ==
LOC: REG 09:38
PROVIDERS: ATTENDING PHYSICIAN Internal Medicine Gastroenterology; FAMILY PHYSICIAN Family Medicine
DX: R74.8 Abnormal levels of other serum enzymes (principal)
CPT/HCPCS: 36415; 82150; 83690

== ENCOUNTER → 2024-05-28 10:19 | Outpatient (REF) | payer MEDICARE, OTHER, SELFPAY ==
[2024-05-28 11:24] LABS: % Basophils 0.5 % (0-2); % Eosinophils 2.5 % (0-6); % Immature Granulocytes 1.7 % (0-0.5); % Lymphocytes 19.1 % (20.5-51.1); % Monocytes 6.8 % (1.7-9.3); % Neutrophils 69.4 % (42.2-75.2); Absolute Basophils 0.1 10^3/uL (0-0.2); Absolute Eosinophils 0.2 10^3/uL (0-0.7); Absolute Immature Granulocytes 0.2 10^3/uL (0-0.05); Absolute Lymphocytes 1.8 10^3/uL (1.2-3.4); Absolute Monocytes 0.7 10^3/uL (0.1-0.6); Absolute Neutrophils 6.6 10^3/uL (1.4-6.5); Hematocrit 35.4 % (37.0-47.0); Hemoglobin 11.6 g/dL (12.0-16.0); Mean Corp Hgb Conc. 32.8 g/dL (33.0-37.0); Mean Corpuscular Volume 82.5 fL (81.0-99.0); Mean Platelet Volume 9.3 fL (7.4-10.4); Nucleated Red Blood Cells % 0 %; Platelet Count 291 10^3/uL (130-400); Red Blood Cell Count 4.29 10^6/uL (4.20-5.40); Red Cell Dist. Width 16.2 % (11.5-14.5); White Blood Cell Count 9.5 10^3/uL (4.8-10.8)
[2024-05-28 11:58] LABS: Iron 64 ug/dl (37-170)
[2024-05-28 12:08] LABS: Percent Saturation 18 % (20-50); Total Iron Binding Capacity 355 ug/dl (265-497)
== END ==
LOC: REG 10:19
PROVIDERS: ATTENDING PHYSICIAN Internal Medicine Hematology & Oncology; FAMILY PHYSICIAN Family Medicine
DX: D69.3 Immune thrombocytopenic purpura (principal); D50.9 Iron deficiency anemia, unspecified; K38.8 Other specified diseases of appendix; R19.04 Left lower quadrant abdominal swelling, mass and lump; R93.5 Abnormal findings on diagnostic imaging of other abdominal regions, including retroperitoneum; Z12.4 Encounter for screening for malignant neoplasm of cervix; C18.9 Malignant neoplasm of colon, unspecified; C25.9 Malignant neoplasm of pancreas, unspecified; C56.9 Malignant neoplasm of unspecified ovary
CPT/HCPCS: 36415; 82728; 83540; 83550; 85025

== ENCOUNTER 2024-09-09 17:40 | Emergency (ER) | payer MEDICARE, OTHER, SELFPAY ==
[2024-09-09 17:45] VITALS: BP 133/63
--- NOTE | 2024-09-09 20:09 | ED.GENMED ---
History of Present Illness
General
Chief Complaint: Head Injury
Source: patient
Exam Limitations: none
Time Seen by Provider: 09/09/24 18:06
History of Present Illness
History of Present Illness:
Patient states she was attempting to pick something up and lost her balance. States she fell back onto the floor. No LOC. Complains of headahce and neck pain. Incident occurred today. Brought to ED by spouse for eval.
Past History
Past History
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
ED Past Surgical History: Cardiac (A-fib ablation), Gynecological and Orthopedic
Patient has exhibited threatening behavior?: No
Social History
Tobacco: Non-smoker
Alcohol: None
Drug: None
Personal:
Living: with family
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
Family History
Family History: Other (No significant)
Review of Systems
Review of Systems
Allergies reviewed?: Yes
All Other Systems: ROS reviewed and negative except as documented in HPI and ROS
Constitutional: Reports no symptoms
EENT: Reports no symptoms
Respiratory: Reports no symptoms
Cardiac: Reports no symptoms
ABD/GI: Reports no symptoms
: Reports no symptoms
Musculoskeletal: Reports neck pain
Skin: Reports no symptoms
Neurological: Reports no symptoms
Psychiatric: Reports no symptoms
Phy Exam
General Physical Exam
General Presentation: well appearing and no apparent distress
General age: appears stated age
General Skin: warm and dry
General Habitus: normal
ENT Exam
ENT Exam: EOMI, TM's normal, pharynx normal and neck supple
Eye Exam
Eye Exam: PERRL, EOMI, conjunctiva normal and globe normal
Gastrointestinal Exam
Gastrointestinal Exam: normal bowel sounds and non tender
Neurological Exam
Neurological Exam: alert, oriented x3, CN II-XII intact, no motor deficits, no sensory deficits and speech normal
Musculoskeletal Exam
Musculoskeletal Exam: full ROM and neuro vasc intact
Skin Exam
Skin Exam: normal color, warm/dry and no rash
Psychiatric Exam
Psychiatric Exam: normal mood/affect
Course
Orders/Labs/Results
Orders:
Orders
09/09/24 17:48
CT Cervical Spine W/o Iv Contr Urgent
Comment:
Reason For Exam: fall w/neck pain
CT Head W/o Iv Contrast Urgent
Comment:
Reason For Exam: fall
Vital Signs
Initial and Last Documented VS:
Initial Vital Signs
Temp Pulse Resp BP Pulse Ox
98.8 F 72 18 133/63 100
09/09/24 17:45 09/09/24 17:45 09/09/24 17:45 09/09/24 17:45 09/09/24 17:45
Last Documented Vital Signs
Temp Pulse Resp BP Pulse Ox
98.8 F 72 18 133/63 100
09/09/24 17:45 09/09/24 17:45 09/09/24 17:45 09/09/24 17:45 09/09/24 17:45
*Radiology
Radiology exam reviewed: radiology read reviewed
*Pulse Oximetry
Patient hypoxic: no
*Critical Care Note
Total Time (30-74mins, 75-104mins- exclusive of procedures): Not Applicable
Update Note
Update Note:
Small nodule noted on thyroid - incidental finding on cervical CT. Discussed findings with patient. She will follow up with PCP to schedule outpatient US.
ED Attending Note
-
Portions of this chart may have been created with voice recognition software.� Occasional wrong word or��sound alike� substitutions may have occurred due to the inherent limitations of voice recognition software.
Discharge Plan
Departure
Patient Disposition: Home (Routine Discharge)
Date of Disposition: 09/09/24
Time of Disposition: 20:07
Patient with high blood pressure during this ER visit?: No
Condition: Good
Covid-19: Not Applicable
Discharge Problem:
Head injury
Instructions: Head Injury in Adults (DC), Contusion (DC)
Prescriptions:
No Action
duloxetine 60 MG capsule,delayed release(DR/EC)
60 mg PO DAILY
atorvastatin 10 MG tablet
10 mg PO HS
Januvia 100 MG tablet
100 mg PO DAILY
cetirizine 10 MG tablet
10 mg PO DAILY
ferrous sulfate [iron] 325 MG tablet
325 mg PO DAILY
glimepiride 4 MG tablet
4 mg PO BID
hydrochlorothiazide 25 MG tablet
25 mg PO DAILY
Otezla 30 mg Tablet
30 mg PO BID
ascorbic acid (vitamin C) [Vitamin C] 500 mg Tablet
500 mg PO DAILY
cyanocobalamin (vitamin B-12) [Vitamin B-12] 1,000 mcg Tablet
1,000 mcg PO DAILY
Eliquis 5 mg Tablet
5 mg PO BID
famotidine [Pepcid] 40 mg Tablet
40 mg PO DAILY
Trulicity 3 mg/0.5 mL Pen Injector
3 mg SC STOKES
nadolol [Corgard] 40 mg tablet
40 mg PO BID Qty: 60 0RF
magnesium 250 mg Tablet
250 mg PO BID
cholecalciferol (vitamin D3) [Vitamin D3] 50 mcg (2,000 unit) Tablet
50 mcg PO DAILY
potassium chloride 10 mEq capsule, extended release
20 meq PO BID
Theragen Tablet
1 tab PO DAILY
Referrals:
Chandler Handy MD [Family Provider] - Call in 1-3 days for appt
Activity Restrictions/Additional Instructions:
Follow up with your family doctor to schedule an ultrasound of your thyroid and the nodule noted on CT.
Interventions
Interventions:
*Risk Screen - Suicide Last Done: 09/09/24 17:45
*General Assessment Last Done: 09/09/24 17:45
*Neglect/Abuse Screening Last Done: 09/09/24 17:45
*ED COVID-19 Vaccine History Last Done: 09/09/24 17:45
*Nursing Disposition Last Done: 09/09/24 20:18
ED- Neurological Assessment Last Done: 09/09/24 18:20
ED-Skin Assessment Last Done: 09/09/24 18:20
Discharge Date and Time
Discharge Date/Time: 09/09/24 20:19
Print Language: CHADIAN
== END 2024-09-09 20:19 | disposition home or self-care (01) ==
LOC: EMR 17:40
PROVIDERS: EMERGENCY PHYSICIAN Emergency Medicine; FAMILY PHYSICIAN Family Medicine
DX: S09.90XA Unspecified injury of head, initial encounter (principal); W01.0XXA Fall on same level from slipping, tripping and stumbling without subsequent striking against object, initial encounter
CPT/HCPCS: 99284; 70450; 72125

== ENCOUNTER 2024-11-23 09:37 | Outpatient (RCR) | payer MEDICARE, OTHER, SELFPAY | END 2024-11-23 23:59 | disposition home or self-care (01) | LOC: RPT 09:37 | PROVIDERS: ATTENDING PHYSICIAN Physical Medicine & Rehabilitation; FAMILY PHYSICIAN Family Medicine | DX: M43.22 Fusion of spine, cervical region (principal); Z73.6 Limitation of activities due to disability | CPT/HCPCS: 97110; 97112; 97116; 97163; 97167; 97530; 97535 ==

== ENCOUNTER 2024-12-01 22:13 | Emergency (ER) | payer MEDICARE, OTHER, SELFPAY ==
[2024-12-01 22:14] VITALS: BMI 34.0
[2024-12-01 22:17] VITALS: BP 146/85
[2024-12-01 23:08] VITALS: BP 105/56
[2024-12-02] VITALS: BP 109/63
--- NOTE | 2024-12-02 00:20 | ED.SKININJ ---
HPI-Injury
General
Chief Complaint: Head Injury
Source: patient
Exam Limitations: none
Time Seen by Provider: 12/01/24 22:50
Nursing documentation reviewed up to this point in time: agreed with
History of Present Illness-Injury
Is this injury a work related problem?: No
Initial Injury comments:
Patient to ED s/p fall. States she tripped over her walker and fell back, hitting back of head on floor. No LOC. Has lac to posterior scalp. She is approx 3 weeks post cervical fusion. SHe denies any neck pain, denies any weakness in
extremities. Brought to ED by spouse for eval.
Past History
Past History
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
ED Past Surgical History: Cardiac (A-fib ablation), Gynecological and Orthopedic
Patient has exhibited threatening behavior?: No
Social History
Tobacco: Non-smoker
Alcohol: None
Drug: None
Personal:
Living: with family
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
Family History
Family History: Other (No significant)
Review of Systems
Review of Systems
Allergies reviewed?: Yes
All Other Systems: ROS reviewed and negative except as documented in HPI and ROS
Constitutional: Reports no symptoms
EENT: Reports no symptoms
Respiratory: Reports no symptoms
Cardiac: Reports no symptoms
ABD/GI: Reports no symptoms
: Reports no symptoms
Musculoskeletal: Reports no symptoms
Skin: Reports other (laceraton to posterior scalp)
Neurological: Reports no symptoms
Psychiatric: Reports no symptoms
Skin Exam
Laceration
Posterior Scalp:
Length in cm: 2.5
Orientation: horizontal
Type of Laceration: simple
Any active bleeding?: no active bleeding
Distal skin color and temperature: normal-warm & good color
Normal distal neurovascular exam: Yes
Range of motion: full
Phy Exam
General Physical Exam
General Presentation: well appearing and no apparent distress
General age: appears stated age
General Skin: warm and dry
General Habitus: normal
General Mental: alert
Neurological Exam
Neurological Exam: alert, oriented x3, CN II-XII intact, no motor deficits, no sensory deficits, speech normal and normal gait
Musculoskeletal Exam
Musculoskeletal Exam: full ROM and neuro vasc intact
Skin Exam
Skin Exam: normal color, warm/dry and no rash
Psychiatric Exam
Psychiatric Exam: normal mood/affect
Course
Orders/Labs/Results
Orders:
Orders
12/01/24 22:14
CT Head W/o Iv Contrast Urgent
Comment:
Reason For Exam: fall on thinners
12/01/24 22:17
Cervical Spine wo Contrast CT [CT Cervical Spine W/o Iv Contr] Urgent
Comment:
Reason For Exam: pain
Vital Signs
Initial and Last Documented VS:
Initial Vital Signs
Temp Pulse Resp BP Pulse Ox
98.1 F 74 20 146/85 99
12/01/24 22:17 12/01/24 22:17 12/01/24 22:17 12/01/24 22:17 12/01/24 22:17
Last Documented Vital Signs
Temp Pulse Resp BP Pulse Ox
98.1 F 65 21 109/63 97
12/01/24 22:17 12/02/24 00:30 12/02/24 00:30 12/02/24 00:00 12/02/24 00:30
Procedures
Laceration Closure
Posterior Scalp:
Status of Wound: clean
Description of Wound Edges: sharp
Preparation: cleaned with saline and cleaned with Betadine
Anesthesia: 1% Lidocaine with epi
Wound exploration: explored to base- no FB
Type of Closure: single layer closure
Skin Closure Material: skin belkys
*Radiology
Radiology exam reviewed: radiology read reviewed
*Pulse Oximetry
Patient hypoxic: no
*Critical Care Note
Total Time (30-74mins, 75-104mins- exclusive of procedures): Not Applicable
Update Note
Update Note:
CT results discussed with patient. States she is aware of the spinal stenosis and DDD. Although she had anterior cervical fusion she was told that she may need to have a posterior fusion. She denies any neck pain. She denies any weakness in
extremities. Equal strength and sensation bilaterally. She will be discharged with disc of cervical CT and wll follow up with her surgeon. Given instructions on s/s to retun to eD and she is agreeable to plan
ED Attending Note
-
Portions of this chart may have been created with voice recognition software.� Occasional wrong word or��sound alike� substitutions may have occurred due to the inherent limitations of voice recognition software.
Discharge Plan
Departure
Patient Disposition: Home (Routine Discharge)
Date of Disposition: 12/02/24
Time of Disposition: 00:01
Patient with high blood pressure during this ER visit?: No
Condition: Good
Covid-19: Not Applicable
Discharge Problem:
Head injury, Laceration of scalp
Instructions: Head Injury in Adults (DC), Laceration Repair With Whiting (DC)
Prescriptions:
No Action
duloxetine 60 MG capsule,delayed release(DR/EC)
60 mg PO DAILY
Januvia 100 MG tablet
100 mg PO DAILY
ferrous sulfate [iron] 325 MG tablet
325 mg PO DAILY
Otezla 30 mg Tablet
30 mg PO BID
Trulicity 3 mg/0.5 mL Pen Injector
3 mg SC STOKES
Rx Instructions:
Inject 3 mg under skin every 7 days on Mondays. Last 10/05
nadolol [Corgard] 40 mg tablet
40 mg PO BID Qty: 60 0RF
potassium chloride 10 mEq capsule, extended release
20 meq PO BID
therapeutic multivitamin Tablet
1 tab PO DAILY
gabapentin 100 mg Tablet
100 mg PO TID
Rx Instructions:
Take 1 capsule every 8 hours for 15 days
melatonin 3 mg Tablet
3 mg PO HS 30 Days Qty: 30 0RF
docusate sodium 100 mg Capsule
100 mg PO BID 30 Days Qty: 60 0RF
magnesium L-lactate 84 mg Tablet Extended Release
84 mg PO DAILY 30 Days Qty: 30 0RF
atorvastatin 10 MG tablet
10 mg PO HS Qty: 0 0RF
famotidine 40 mg Tablet
40 mg PO DAILY Qty: 0 0RF
acetaminophen 500 mg Tablet
650 mg PO Q6 PRN (Reason: mild pain) Qty: 0 0RF
Rx Instructions:
For pain score (1-3/10) for upto 10 days
glimepiride 4 MG tablet
2 mg PO DAILY Qty: 0 0RF
Rx Instructions:
Take 4 mg po every morning before breakfast.
Eliquis 5 mg Tablet
5 mg PO BID Qty: 0 0RF
Rx Instructions:
Resume 10/13/24 evening.
gabapentin 100 mg capsule
100 mg PO TID 30 Days Qty: 90 0RF
hydrochlorothiazide 25 MG tablet
12.5 mg PO DAILY Qty: 0 0RF
Referrals:
Chandler Handy MD [Family Provider] - Follow up in 2-3 days (Whiting can be removed in 7-10 days.)
Activity Restrictions/Additional Instructions:
Follow up with your spine surgeon in the AM.
Interventions
Interventions:
*Risk Screen - Suicide Last Done: 12/01/24 23:12
*General Assessment Last Done: 12/01/24 22:17
*Neglect/Abuse Screening Last Done: 12/01/24 23:12
*ED- Fall Risk Assessment Last Done: 12/01/24 23:12
*ED COVID-19 Vaccine History Last Done: 12/01/24 23:12
*Nursing Disposition Last Done: 12/02/24 00:45
ED- Neurological Assessment Last Done: 12/01/24 23:16
ED-Skin Assessment Last Done: 12/02/24 00:10
Discharge Date and Time
Discharge Date/Time: 12/02/24 00:58
Print Language: LITHUANIAN
== END 2024-12-02 00:58 | disposition home or self-care (01) ==
LOC: EMR 22:13
PROVIDERS: EMERGENCY PHYSICIAN Emergency Medicine; FAMILY PHYSICIAN Family Medicine
DX: S09.90XA Unspecified injury of head, initial encounter (principal); S01.01XA Laceration without foreign body of scalp, initial encounter; W01.0XXA Fall on same level from slipping, tripping and stumbling without subsequent striking against object, initial encounter; K21.9 Gastro-esophageal reflux disease without esophagitis; I10 Essential (primary) hypertension; E78.00 Pure hypercholesterolemia, unspecified; E11.9 Type 2 diabetes mellitus without complications; I48.91 Unspecified atrial fibrillation; Z79.01 Long term (current) use of anticoagulants; Z98.1 Arthrodesis status
CPT/HCPCS: 99284; 12001; 70450; 72125

== ENCOUNTER → 2024-12-10 08:53 | Outpatient (REF) | payer MEDICARE, OTHER, SELFPAY | LOC: EMG 08:53 | PROVIDERS: FAMILY PHYSICIAN Family Medicine | DX: G62.9 Polyneuropathy, unspecified (principal); R20.0 Anesthesia of skin; G56.03 Carpal tunnel syndrome, bilateral upper limbs | CPT/HCPCS: 36415; 82784; 83521; 84155; 84165; 86038; 86334; 95886; 95913 ==

== ENCOUNTER → 2024-12-10 10:58 | Outpatient (REF) | payer MEDICARE, OTHER, SELFPAY ==
[2024-12-12 01:42] LABS: ANA, IgG Reflex to HEp-2 None Detected (None Detected)
== END ==
LOC: REG 10:58
DX: G62.9 Polyneuropathy, unspecified (principal)
CPT/HCPCS: 36415; 82784; 83521; 84155; 84165; 86038; 86334

== ENCOUNTER 2024-12-13 11:06 | Emergency (ER) | payer MEDICARE, OTHER, SELFPAY ==
[2024-12-13 11:08] VITALS: BP 124/69
--- NOTE | 2024-12-13 12:34 | ED.GENMED ---
History of Present Illness
General
Chief Complaint: Wound Check/Suture Removal
Source: patient
Exam Limitations: none
Time Seen by Provider: 12/13/24 12:14
Nursing documentation reviewed up to this point in time: agreed with
History of Present Illness
History of Present Illness:
The patient is 69 year-old female who presents to the emergency department for staple removal. Patient reports mechanical fall 10 days ago with associated head strike. She was seen in the ED at that time where skin belkys were placed in patients
wound. Patient said she has been keeping wound clean and applying a small amount of ointment daily. She denies any significant pain or any drainage from wound.
No other complaints today.
Past History
Past History
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
ED Past Surgical History: Cardiac (A-fib ablation), Gynecological and Orthopedic
Patient has exhibited threatening behavior?: No
Social History
Tobacco: Non-smoker
Alcohol: None
Drug: None
Personal:
Living: with family
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
Family History
Family History: Other (No significant)
Review of Systems
Review of Systems
Allergies reviewed?: Yes
All Other Systems: ROS reviewed and negative except as documented in HPI and ROS
Phy Exam
Physical Exam
Physical Exam:
Vitals: Patient's vital signs are stable. Afebrile
General: Patient is well appearing, no acute distress
Skin: [address] to posterior scalp without surrounding erythema, warmth, drainage. Wound edges appear well-approximated.
Head: Healing laceration of posterior scalp as above.
Throat: Protecting airway
Neck: Normal ROM, no cervical spine tenderness
Cardiac: Regular rate
Pulm: No apparent respiratory distress
Abdomen: Nondistended
Extremities: No evidence of cyanosis or edema
Neuro: Grossly intact
Psychiatric: Normal affect.
Course
Vital Signs
Initial and Last Documented VS:
Initial Vital Signs
Temp Pulse Resp BP Pulse Ox
98 F 77 16 124/69 97
12/13/24 11:08 12/13/24 11:08 12/13/24 11:08 12/13/24 11:08 12/13/24 11:08
Last Documented Vital Signs
Temp Pulse Resp BP Pulse Ox
98 F 77 16 124/69 97
12/13/24 11:08 12/13/24 11:08 12/13/24 11:08 12/13/24 11:08 12/13/24 11:08
MDM/Problems Addressed
Differential Diagnosis Includes:
Allergy to: Staple removal, wound check, etc.
MDM/Problems Addressed:
69 year-old female presenting 11 days following head injury for staple removal. Patient following excellent wound care at home. Vitals and physical exam as above.
There is a well healing wound on her posterior scalp with [address]. Wound edges appear well approximated without any surrounding cellulitis. Verbal consent obtained by patient to remove belkys. Area was cleaned with alcohol swab and
seven skin belkys successfully removed without complication. Wound edges remain well approximated following removal. Small amount of anabiotic appointment applied. Patient is stable for discharge home. Did review return precautions, including signs
of infection. Patient expressed verbal understanding.
Chronic conditions affecting care:
N/A
Acute Exacerbation and/or Progression of Chronic Illness:
N/A
*Pulse Oximetry
Patient hypoxic: no
*EKG
Interpreted by ED Provider?: NA
*Colon And Rectal Surgeon Interpretation
Rate: Colon And Rectal Surgeon- N/A
*Critical Care Note
Total Time (30-74mins, 75-104mins- exclusive of procedures): Not Applicable
Data Reviewed
Review of Other/Old Records Reveals: Discharge Summary (ED discharge summary from 12/02/24)
ED Attending Note
-
Portions of this chart may have been created with voice recognition software.� Occasional wrong word or��sound alike� substitutions may have occurred due to the inherent limitations of voice recognition software.
Discharge Plan
Departure
Patient Disposition: Home (Routine Discharge)
Date of Disposition: 12/13/24
Time of Disposition: 12:24
Patient with high blood pressure during this ER visit?: No
Condition: Good
Covid-19: Not Applicable
Discharge Problem:
Encounter for staple removal
Instructions: Wound Care (DC)
Prescriptions:
No Action
duloxetine 60 MG capsule,delayed release(DR/EC)
60 mg PO DAILY
Januvia 100 MG tablet
100 mg PO DAILY
ferrous sulfate [iron] 325 MG tablet
325 mg PO DAILY
Otezla 30 mg Tablet
30 mg PO BID
Trulicity 3 mg/0.5 mL Pen Injector
3 mg SC STOKES
Rx Instructions:
Inject 3 mg under skin every 7 days on Mondays. Last 10/05
nadolol [Corgard] 40 mg tablet
40 mg PO BID Qty: 60 0RF
potassium chloride 10 mEq capsule, extended release
20 meq PO BID
therapeutic multivitamin Tablet
1 tab PO DAILY
gabapentin 100 mg Tablet
100 mg PO TID
Rx Instructions:
Take 1 capsule every 8 hours for 15 days
melatonin 3 mg Tablet
3 mg PO HS 30 Days Qty: 30 0RF
docusate sodium 100 mg Capsule
100 mg PO BID 30 Days Qty: 60 0RF
magnesium L-lactate 84 mg Tablet Extended Release
84 mg PO DAILY 30 Days Qty: 30 0RF
atorvastatin 10 MG tablet
10 mg PO HS Qty: 0 0RF
famotidine 40 mg Tablet
40 mg PO DAILY Qty: 0 0RF
acetaminophen 500 mg Tablet
650 mg PO Q6 PRN (Reason: mild pain) Qty: 0 0RF
Rx Instructions:
For pain score (1-3/10) for upto 10 days
glimepiride 4 MG tablet
2 mg PO DAILY Qty: 0 0RF
Rx Instructions:
Take 4 mg po every morning before breakfast.
Eliquis 5 mg Tablet
5 mg PO BID Qty: 0 0RF
Rx Instructions:
Resume 10/13/24 evening.
gabapentin 100 mg capsule
100 mg PO TID 30 Days Qty: 90 0RF
hydrochlorothiazide 25 MG tablet
12.5 mg PO DAILY Qty: 0 0RF
Activity Restrictions/Additional Instructions:
RETURN TO THE EMERGENCY DEPARTMENT WITH ANY SIGNS OF INFECTION AROUND WOUND INCLUDING FEVER, CHILLS, SIGNIFICANT REDNESS OR SWELLING, PURULENT DRAINAGE FROM WOUND, RED STREAKING AWAY FROM WOUND, OR ANY OTHER CONCERNS
- As discussed�you had 7 belkys removed from your scalp today. The wound appears to be healing well.
- Continue to keep wound clean, wash gently with soap and water daily. You can apply a small amount of antibiotic ointment to the wound over the next few days as it continues to heal.
- Follow-up with your primary care for further evaluation/management as needed
Interventions
Interventions:
*Risk Screen - Suicide Last Done: 12/13/24 11:09
*Neglect/Abuse Screening Last Done: 12/13/24 11:09
*Nursing Disposition Last Done: 12/13/24 13:01
Discharge Date and Time
Discharge Date/Time: 12/13/24 12:45
Print Language: MONTSERRATIAN
== END 2024-12-13 12:45 | disposition home or self-care (01) ==
LOC: EMR 11:06
PROVIDERS: EMERGENCY PHYSICIAN Emergency Medicine
DX: S01.01XD Laceration without foreign body of scalp, subsequent encounter (principal); W19.XXXD Unspecified fall, subsequent encounter; E11.9 Type 2 diabetes mellitus without complications; E78.00 Pure hypercholesterolemia, unspecified; I10 Essential (primary) hypertension
CPT/HCPCS: 99281

== ENCOUNTER 2024-12-21 09:23 | Outpatient (RCR) | payer MEDICARE, OTHER, SELFPAY | END 2024-12-21 23:59 | disposition home or self-care (01) | LOC: RPT 09:23 | PROVIDERS: ATTENDING PHYSICIAN Physical Medicine & Rehabilitation; FAMILY PHYSICIAN Family Medicine | DX: M43.22 Fusion of spine, cervical region (principal); Z73.6 Limitation of activities due to disability | CPT/HCPCS: 97110; 97112; 97116; 97530; 97535 ==

== ENCOUNTER 2025-01-18 12:46 | Outpatient (RCR) | payer MEDICARE, OTHER, SELFPAY | END 2025-01-18 23:59 | disposition home or self-care (01) | LOC: RPT 12:46 | PROVIDERS: ATTENDING PHYSICIAN Physical Medicine & Rehabilitation; FAMILY PHYSICIAN Family Medicine | DX: M43.22 Fusion of spine, cervical region (principal); Z73.6 Limitation of activities due to disability | CPT/HCPCS: 97110; 97112; 97116; 97530; 97535; 97537 ==

== ENCOUNTER 2025-02-09 15:02 | Outpatient (RCR) | payer MEDICARE, OTHER, SELFPAY | END 2025-02-09 23:59 | disposition home or self-care (01) | LOC: RPT 15:02 | PROVIDERS: ATTENDING PHYSICIAN Physical Medicine & Rehabilitation; FAMILY PHYSICIAN Family Medicine | DX: M43.22 Fusion of spine, cervical region (principal); Z73.6 Limitation of activities due to disability | CPT/HCPCS: 97110; 97112; 97116; 97530; 97535 ==

== ENCOUNTER → 2025-02-28 09:42 | Outpatient (REF) | payer MEDICARE, OTHER, SELFPAY ==
[2025-02-28 10:41] LABS: Hematocrit 39.1 % (37.0-47.0); Hemoglobin 12.4 g/dL (12.0-16.0); Mean Corp Hgb Conc. 31.7 g/dL (33.0-37.0); Mean Corpuscular Volume 79.8 fL (81.0-99.0); Nucleated Red Blood Cells % 0 %; Platelet Count 283 10^3/uL (130-400); Red Cell Dist. Width 15.9 % (11.5-14.5)
[2025-02-28 11:13] LABS: ALT (SGPT) 20 U/L (0-35); AST (SGOT) 22 U/L (14-36); Albumin 4.2 g/dl (3.5-5.0); Alkaline Phosphatase 103 U/L (38-126); Blood Urea Nitrogen 18 mg/dl (7-17); Calcium 9.5 mg/dl (8.4-10.2); Carbon Dioxide 30 mmol/L (22-30); Chloride 104 mmol/L (98-107); Glucose 164 mg/dl (70-99); Potassium 4.3 mmol/L (3.5-5.1); Sodium 140 mmol/L (135-145); Total Protein 6.8 g/dl (6.3-8.2); eGFR > 60.00
[2025-02-28 11:15] LABS: C-Reactive Protein 9.30 mg/L (0.0-10.00)
== END ==
LOC: REG 09:42
PROVIDERS: ATTENDING PHYSICIAN Internal Medicine Rheumatology; FAMILY PHYSICIAN Family Medicine; REFERRING PHYSICIAN Internal Medicine Rheumatology
DX: L40.50 Arthropathic psoriasis, unspecified (principal); L40.9 Psoriasis, unspecified; Z11.1 Encounter for screening for respiratory tuberculosis
CPT/HCPCS: 36415; 80053; 85025; 85652; 86140; 86480

== ENCOUNTER → 2025-04-13 15:30 | Outpatient (REF) | payer MEDICARE, OTHER, SELFPAY ==
[2025-04-13 16:15] LABS: Hematocrit 40.8 % (37.0-47.0); Hemoglobin 13.2 g/dL (12.0-16.0); Mean Corp Hgb Conc. 32.4 g/dL (33.0-37.0); Mean Corpuscular Volume 78.8 fL (81.0-99.0); Nucleated Red Blood Cells % 0 %; Platelet Count 331 10^3/uL (130-400); Red Cell Dist. Width 15.5 % (11.5-14.5)
== END ==
LOC: REG 15:30
PROVIDERS: ATTENDING PHYSICIAN Internal Medicine Hematology & Oncology; FAMILY PHYSICIAN Family Medicine
DX: D69.3 Immune thrombocytopenic purpura (principal); D50.9 Iron deficiency anemia, unspecified; K38.8 Other specified diseases of appendix; R19.04 Left lower quadrant abdominal swelling, mass and lump; R93.5 Abnormal findings on diagnostic imaging of other abdominal regions, including retroperitoneum; Z12.4 Encounter for screening for malignant neoplasm of cervix; C18.9 Malignant neoplasm of colon, unspecified; C25.9 Malignant neoplasm of pancreas, unspecified; C56.9 Malignant neoplasm of unspecified ovary
CPT/HCPCS: 36415; 85025

== ENCOUNTER → 2025-05-02 09:08 | Outpatient (REF) | payer MEDICARE, OTHER, SELFPAY | LOC: RAD 09:08 | PROVIDERS: ATTENDING PHYSICIAN Family Medicine | DX: E04.1 Nontoxic single thyroid nodule (principal) | CPT/HCPCS: 76536 ==

== ENCOUNTER → 2025-06-08 10:26 | Outpatient (REF) | payer MEDICARE, OTHER, SELFPAY ==
[2025-06-08 10:35] VITALS: BP 157/95; BP_SYST 72
== END ==
LOC: RADI 10:26
PROVIDERS: ATTENDING PHYSICIAN Student in an Organized Health Care Education/Training Program; FAMILY PHYSICIAN Family Medicine
DX: E04.2 Nontoxic multinodular goiter (principal)
CPT/HCPCS: 10005; 88173

== ENCOUNTER → 2025-06-13 08:12 | Outpatient (REF) | payer MEDICARE, OTHER, SELFPAY ==
[2025-06-13 08:56] LABS: Hematocrit 36.2 % (37.0-47.0); Hemoglobin 11.6 g/dL (12.0-16.0); Mean Corp Hgb Conc. 32.0 g/dL (33.0-37.0); Mean Corpuscular Volume 82.5 fL (81.0-99.0); Nucleated Red Blood Cells % 0 %; Platelet Count 319 10^3/uL (130-400); Red Cell Dist. Width 15.2 % (11.5-14.5)
[2025-06-13 10:24] LABS: Iron 60 ug/dl (37-170)
[2025-06-13 10:34] LABS: Total Iron Binding Capacity 414 ug/dl (265-497)
[2025-06-13 10:47] LABS: Ferritin 23.6 ng/ml (11.1-264.0)
== END ==
LOC: REG 08:12
PROVIDERS: ATTENDING PHYSICIAN Nurse Practitioner Adult Health; FAMILY PHYSICIAN Family Medicine
DX: D69.3 Immune thrombocytopenic purpura (principal); D50.9 Iron deficiency anemia, unspecified; K38.8 Other specified diseases of appendix; R19.01 Right upper quadrant abdominal swelling, mass and lump; R93.5 Abnormal findings on diagnostic imaging of other abdominal regions, including retroperitoneum; Z12.4 Encounter for screening for malignant neoplasm of cervix; C18.9 Malignant neoplasm of colon, unspecified; C25.9 Malignant neoplasm of pancreas, unspecified; C56.9 Malignant neoplasm of unspecified ovary
CPT/HCPCS: 36415; 82728; 83540; 83550; 85025

== ENCOUNTER → 2025-07-11 17:10 | Outpatient (REF) | payer MEDICARE, OTHER, SELFPAY | LOC: RAD 17:10 | PROVIDERS: ATTENDING PHYSICIAN Family Medicine | DX: R91.1 Solitary pulmonary nodule (principal) | CPT/HCPCS: 71250 ==